=== PATIENT | female | born 1955 | race Caucasian/White ===

== ENCOUNTER 2018-04-08 11:28 | Day surgery (SDC) | payer BC ==
[2018-04-08] MEDS ORDERED: diphenhydrAMINE HCL 25 MG CAPSULE (FP) PO ONE ×2 (11:47→12:00)
[2018-04-08] MEDS ORDERED: methylPREDNISolone NA SUCC 40 MG/1 ML VIAL ONE (11:49)
[2018-04-08] MEDS ORDERED: methylPREDNISolone NA SUCC 40 MG/1 ML VIAL IVPB ONE (12:00)
[2018-04-08] MEDS ORDERED: ZOLEDRONIC ACID/MAN/WATER 5 MG/100 ML INFUS..BTL IVPB ONE (13:00)
[2018-04-08] MEDS ORDERED: DEXTROSE 5%-0.45% SALINE 1,000 ML IV SCH (13:00)
[2018-04-08 14:25] VITALS: BP 123/70; PULSE 70; TEMP 98.8
== END 2018-04-08 15:13 | disposition home or self-care (01) ==
LOC: JCHEMO 11:28
PROVIDERS: ATTEND Specialist
DX: M35.3 Polymyalgia rheumatica (principal)
CPT/HCPCS: 96365; 96413; J3489

== ENCOUNTER 2019-06-24 08:59 | Day surgery (SDC) | payer BC ==
[2019-06-24] MEDS ORDERED: diphenhydrAMINE HCL 25 MG CAPSULE (FP) PO ONE ×2 (09:19→09:30)
[2019-06-24] MEDS ORDERED: DEXTROSE 5%-0.45% SALINE 1,000 ML IV SCH (09:30)
[2019-06-24] MEDS ORDERED: methylPREDNISolone NA SUCC 40 MG/1 ML VIAL IVPUSH ONE ×2 (09:30)
[2019-06-24] MEDS ORDERED: ZOLEDRONIC ACID/MAN/WATER 5 MG/100 ML INFUS..BTL IVPB ONE (10:30)
[2019-06-24 10:54] VITALS: TEMP 97.6
[2019-06-24 12:13] VITALS: BP 122/61; PULSE 72
== END 2019-06-24 13:05 | disposition home or self-care (01) ==
LOC: JINFUSION 08:59
PROVIDERS: ATTEND Specialist
PROC: 3E033GC Introduction of Other Therapeutic Substance into Peripheral Vein, Percutaneous Approach (ICD-10-PCS; principal; 2019-06-24)
PROC: 3E013GC Introduction of Other Therapeutic Substance into Subcutaneous Tissue, Percutaneous Approach (ICD-10-PCS; 2019-06-24)
DX: M35.3 Polymyalgia rheumatica (principal); M60.9 Myositis, unspecified
CPT/HCPCS: 96365; 96372; J3489

== ENCOUNTER 2020-11-12 16:23 | Day surgery (SDC) | payer BC ==
[~2020-11-12 16:23] MED LIST: DEXTROSE 5%-0.45% SALINE 1,000 ML IV SCH; ZOLEDRONIC ACID/MAN/WATER 5 MG/100 ML INFUS..BTL IVPB ONE; diphenhydrAMINE HCL 25 MG CAPSULE (FP) PO ONE; methylPREDNISolone NA SUCC 40 MG/1 ML VIAL IVPB ONE
[2020-11-12 19:25] VITALS: BP 115/59; PULSE 65; TEMP 98.3
== END 2020-11-12 18:30 | disposition home or self-care (01) ==
LOC: FINFUSION 16:23 → FM/S 16:29 → FINFUSION 16:29 → FM/S 18:30
PROVIDERS: ATTEND Specialist
PROC: 3E033GC Introduction of Other Therapeutic Substance into Peripheral Vein, Percutaneous Approach (ICD-10-PCS; principal; 2020-11-12)
DX: M06.9 Rheumatoid arthritis, unspecified (principal); M35.3 Polymyalgia rheumatica
CPT/HCPCS: 96365; J3489